=== PATIENT | female | born 1995 | race Hispanic/Latino ===

== ENCOUNTER 2025-06-01 19:20 | Emergency (ER) | payer BC ==
[2025-06-01 20:40] LABS: Absolute Lymphocytes (CBC) 2.2 K/uL (0.7-4.9); Hematocrit 38.2 % (36.0-45.0); Hemoglobin 13.3 g/dL (12.0-15.0); MCH 32.3 pg (27.0-35.0); MCHC 34.8 g/dL (32.0-36.0); MCV 92.9 fL (80-100); MPV 8.4 fL (7.6-11.3); Nucleated RBC Absolute Count 0.0 (0-0); Nucleated Red Blood Cells % 0.2 % (0-0); RBC Red Blood Cell Count 4.11 M/uL (3.86-4.86); White Blood Count 7.00 thou/uL (4.3-10.9)
[2025-06-01 20:58] LABS: Anion Gap 8.5 mEq/L (5.0-15.0); BUN Blood Urea Nitrogen 9.0 mg/dL (7-18); Glucose Level 93.0 mg/dL (74-106); HCG, Quantitative 91.0 mIU/mL (1-3); Potassium 3.5 mEq/L (3.5-5.1)
--- NOTE | 2025-06-01 21:52 | RAD REPORT ---
EXAMINATION: Transvaginal OB COMPARISON: None. HISTORY: BLEEDING TECHNIQUE: Real-time ultrasound was performed through the pelvis. A transvaginal scan was performed t o better visualize the intrauterine contents and adnexa. FINDINGS: There is a heterogenous appearance in the region of the fundal endometrium. There are numerous small cystic areas in the region. A definitive gestational sac is not clearly seen. Right ovary measures 2.7 x 2.0 x 1.5 cm and normal blood flow. Rounded intermediate echo structure in the left adnexa measuring 3.4 x 2.9 cm does not have typical a ppearance of the ovary, may represent a pedunculated fibroid. IMPRESSION: Heterogenous appearance to the fundal endometrium with numerous cystic areas. A definitive IUP is not identified. Findings are indeterminate, cannot exclude molar in the setting of an elevated hCG level. Recommend close interval serial follow-up hCG levels and follow-up pelvic sonogram in 7-10 days.
--- NOTE | 2025-06-01 22:01 | ER ---
Nurse's Notes [facility] Name: Jamilah Seo Age: 30 yrs Sex: Female : 1995 Arrival Date: 06/01/2025 Time: 19:20 Bed 6 Private MD: Diagnosis: Threatened Presentation: 06/01 19:27 Chief complaint: Patient states: had sudden onset of very heavy vaginal bleeding. Had me1 been spotting a little this morning and was expecting her period. LMP: 04/21/25. Coronavirus screen: At this time, the client does not indicate any symptoms associated with coronavirus-19. Ebola Screen: No symptoms or risks identified at this time. Initial Sepsis Screen: Does the patient meet any 2 criteria? HR > 90 bpm. Does the patient have a suspected source of infection? No. Patient's initial sepsis screen is negative. Risk Assessment: Do you want to hurt yourself or someone else? Patient reports no desire to harm self or others. Onset of symptoms was June 01, 2025 at 19:00. 19:27 Method Of Arrival: Ambulatory 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 - Infectious Disease History:: Denies. - Social history:: Smoking status: Patient denies any tobacco usage or history of. Screenin:15 [facility] ED Fall Risk Assessment (Adult) History of falling in the last 3 months, bm8 including since admission No falls in past 3 months (0 pts) Confusion or Disorientation No (0 pts) Intoxicated or Sedated No (0 pts) Impaired Gait No (0 pts) Mobility Assist Device Used No (0 pt) Altered Elimination No (0 pt) Score/Fall Risk Level 0 - 2 = Low Risk Oriented to surroundings, Maintained a safe environment, Educated pt \T\ family on fall prevention, incl call for assistance when getting out of bed, Assessed \T\ reinforced patient's understanding of fall precautions, Hourly rounding (assess needs \T\ fall precautionary measures) done, Used ambulatory aids as needed (educated on \T\ assisted with), Used gait belt as appropriate. Abuse screen: Denies threats or abuse. Nutritional screening: No deficits noted. Tuberculosis screening: No symptoms or risk factors identified. Assessment: 20:15 General: Appears in no apparent distress. comfortable, Behavior is calm, cooperative, bm8 appropriate for age. Pain: Complains of pain in suprapubic area Pain currently is 5 out of 10 on a pain scale. Quality of pain is described as crampy. Neuro: No deficits noted. Cardiovascular: No deficits noted. Respiratory: No deficits noted. GI: No deficits noted. : pt showed a clot from when she was cleaning up, now states that the bleeding has stopped completly Reports vaginal bleeding that is with clots, heavy flow. EENT: No signs and/or symptoms were reported regarding the EENT system. Derm: No signs and/or symptoms reported regarding the dermatologic system. Musculoskeletal: No signs and/or symptoms reported regarding the musculoskeletal system. 21:51 Reassessment: Patient appears in no apparent distress at this time. Patient and/or bm8 family updated on plan of care and expected duration. Pain level reassessed. Patient is alert, oriented x 3, equal unlabored respirations, skin warm/dry/pink. Patient denies pain at this time. Patient states feeling better. Patient states symptoms have improved. 22:13 Reassessment: Patient appears in no apparent distress at this time. Patient and/or bm8 family updated on plan of care and expected duration. Pain level reassessed. Patient is alert, oriented x 3, equal unlabored respirations, skin warm/dry/pink. Patient denies pain at this time. Patient states feeling better. Patient states symptoms have improved. Vital Signs: 19:27 BP 131 / 86; Pulse 95; Resp 18; Temp 98.3; Pulse Ox 100% ; Weight 58.97 kg; Height 4 me1 ft. 11 in. ; Pain 2/10; 20:45 BP 110 / 83; Pulse 70; Resp 17; Temp 98.3; Pulse Ox 100% ; Pain 0/10; bm8 21:51 BP 120 / 84; Pulse 84; Resp 17; Temp 98.3; Pulse Ox 100% ; Pain 0/10; bm8 22:13 BP 114 / 75; Pulse 77; Resp 17; Temp 98.3; Pulse Ox 100% ; Pain 0/10; bm8 19:27 Body Mass Index 26.26 (58.97 kg, 149.86 cm) me1 19:27 Pain Scale: Adult me1 20:45 Pain Scale: Adult bm8 21:51 Pain Scale: Adult bm8 22:13 Pain Scale: Adult bm8 [place] Coma Score: 20:15 Eye Response: spontaneous(4). Motor Response: obeys commands(6). Verbal Response: bm8 oriented(5). Total: 15. 22:13 Eye Response: spontaneous(4). Motor Response: obeys commands(6). Verbal Response: bm8 oriented(5). Total: 15. ED Course: 19:22 Patient arrived in ED. sj2 19:23 Radha Amaral FNP-C is [facility]. kb 19:23 Fortunato Cornejo MD is Attending Physician. kb 19:30 Triage completed. me1 19:30 Arm band placed on Patient placed in an exam room. me1 20:15 Joseph Banks, RN is Primary Nurse. bm8 20:15 Patient has correct armband on for positive identification. Bed in low position. Call bm8 light in reach. Side rails up X 1. Adult w/ patient. Client placed on continuous cardiac and pulse oximetry monitoring. NIBP monitoring applied. Pulse ox on. NIBP on. Door closed. Noise minimized. Warm blanket given. Pillow given. Verbal reassurance given. Head of bed elevated. 20:44 No provider procedures requiring assistance completed. Initial lab(s) drawn, by va, bm8 sent to lab. Inserted saline lock: 22 gauge in right antecubital area, using aseptic technique. Blood collected. Flushed with 10 mL NS. 21:30 Transvaginal OB In Process Unspecified. EDMS 21:47 Abdomen Pelvis Scan\E\US In Process Unspecified. EDMS 22:13 Provided Education on: post er care. bm8 22:13 IV discontinued, intact, bleeding controlled, No redness/swelling at site. Pressure bm8 dressing applied. Administered Medications: No medications were administered Medication: 20:15 VIS not applicable for this client. bm8 Outcome: 22:00 Discharge ordered by . kb 22:13 Discharged to home ambulatory, bm8 22:13 Condition: stable 22:13 Discharge instructions given to patient, family, Instructed on discharge instructions, follow up and referral plans. no drinking with medication, no driving heavy equipment, medication usage, safety practices, Demonstrated understanding of instructions, follow-up care, medications, 22:15 Patient left the ED. bm8 Signatures: Dispatcher [employer] EDRadha Drew, LAUNDRY WASHER-C LAUNDRY WASHER-CkCristel Henderson, RN RN me1 Joseph Banks RN RN bm8 Edmond Mccord 2 Corrections: (The following items were deleted from the chart) 19:30 19:30 PMHx: History of urinary tract infection; me1 me1
--- NOTE | 2025-06-01 22:01 | EDPHYS ---
Physician Documentation [facility] Name: Jamilah Seo Age: 30 yrs Sex: Female : 1995 Arrival Date: 06/01/2025 Time: 19:20 Bed 6 Private MD: ED Physician Fortunato Cornejo HPI: 06/01 20:38 This 30 yrs old Female presents to ER via Ambulatory with complaints of kb Vaginal Bleeding - HEAVY. 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 States she has had spotting today, but then passed a large clot and a lot of blood. States this has never happened before. LMP 04/21/25. Unknown if , but it is possible. . 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 - Infectious Disease History:: Denies. - Social history:: Smoking status: Patient denies any tobacco usage or history of. ROS: 20:37 Constitutional: As per HPI kb Exam: 20:37 Constitutional: This is a well developed, well nourished patient who is awake, alert, kb and in no acute distress. Head/Face: Normocephalic, atraumatic. ENT: Moist Mucous membranes Cardiovascular: Regular rate Respiratory: Respirations even and unlabored. No increased work of breathing. Talking in full sentences Skin: Warm, dry with normal turgor. Normal color. MS/ Extremity: Pulses equal, no cyanosis. Neurovascular intact. Full, normal range of motion. Neuro: Awake and alert, GCS 15, oriented to person, place, time, and situation. 20:37 Abdomen/GI: Inspection: abdomen appears normal, Bowel sounds: normal, Palpation: soft, in all quadrants, mild abdominal tenderness, in the suprapubic area, Vital Signs: 19:27 BP 131 / 86; Pulse 95; Resp 18; Temp 98.3; Pulse Ox 100% ; Weight 58.97 kg; Height 4 me1 ft. 11 in. ; Pain 2/10; 20:45 BP 110 / 83; Pulse 70; Resp 17; Temp 98.3; Pulse Ox 100% ; Pain 0/10; bm8 21:51 BP 120 / 84; Pulse 84; Resp 17; Temp 98.3; Pulse Ox 100% ; Pain 0/10; bm8 22:13 BP 114 / 75; Pulse 77; Resp 17; Temp 98.3; Pulse Ox 100% ; Pain 0/10; bm8 19:27 Body Mass Index 26.26 (58.97 kg, 149.86 cm) me1 19:27 Pain Scale: Adult me1 20:45 Pain Scale: Adult bm8 21:51 Pain Scale: Adult bm8 22:13 Pain Scale: Adult bm8 Khai Coma Score: 20:15 Eye Response: spontaneous(4). Motor Response: obeys commands(6). Verbal Response: bm8 oriented(5). Total: 15. 22:13 Eye Response: spontaneous(4). Motor Response: obeys commands(6). Verbal Response: bm8 oriented(5). Total: 15. MDM: 19:23 Medical Screening Exam initiated kb 20:38 Differential diagnosis: menorrhea, Neoplasm ovarian cyst, uterine fibroids. Data kb reviewed: vital signs, nurses notes. 21:59 Counseling: I had a detailed discussion with the patient and/or guardian regarding the kb historical points, exam findings, and any diagnostic results supporting the discharge/admit diagnosis, lab results, radiology results, the need for outpatient follow up, an OB/Gyne specialist, to return to the emergency department if symptoms worsen or persist or if there are any questions or concerns that arise at home. 06/01 19:28 Order name: Abo/rh Typing; Complete Time: 21:07 kb 06/01 19:28 Order name: Basic Metabolic Panel kb 06/01 19:28 Order name: CBC with Diff kb 06/01 19:28 Order name: Test, Urine kb 06/01 19:28 Order name: Quantitative Hcg kb 06/01 21:07 Order name: Transvaginal OB; Complete Time: 21:52 EDMS 06/01 21:47 Order name: Abdomen Pelvis Scan\E\US EDMS 06/01 19:28 Order name: IV Saline Lock; Complete Time: 20:43 kb 06/01 19:28 Order name: Labs collected and sent; Complete Time: 20:43 kb 06/01 19:28 Order name: NPO; Complete Time: 20:43 kb Administered Medications: No medications were administered Disposition: 23:08 Co-signature as Attending Physician, Fortunato Cornejo MD I reviewed the patient's care rn provided by the Advanced Practice Provider and agree with the diagnosis and treatment plan. Disposition Summary: 06/01/25 22:00 Discharge Ordered Notes: Location: Home kb Condition: Stable kb Diagnosis - Threatened kb Followup: kb - With: Emergency Department - When: As needed - Reason: Worsening of condition Followup: kb - With: Private Physician - When: 2 - 3 days - Reason: Recheck today's complaints, Continuance of care, Re-evaluation by your physician Discharge Instructions: - Discharge Summary Sheet kb - Threatened Miscarriage, [id number] kb - Vaginal Bleeding During , First Trimester, [id number] kb Forms: - Medication Reconciliation Form kb - Antibiotic Education kb - Prescription Opioid Use kb - Patient Portal Instructions kb - Leadership Thank You Letter kb Signatures: Dispatcher [employer] EDRadha Drew, DESIGNER WRITER-C DESIGNER WRITER-Ckb Fortunato Cornejo MD MD rn Eddleman, Michelle, RN RN me1 Corrections: (The following items were deleted from the chart) 19:30 19:30 PMHx: History of urinary tract infection; me1 me1 21:29 21:08 Transvaginal Ob+US.RAD.BRZ ordered. [facility]
[2025-06-02 00:52] VITALS: TEMP 98.3; O2SAT 100
[2025-06-02 00:56] VITALS: BP 114/75
--- NOTE | 2025-06-02 13:31 | RAD REPORT ---
EXAMINATION: Transvaginal OB, Doppler interrogation COMPARISON: None. HISTORY: BLEEDING TECHNIQUE: Real-time ultrasound was performed through the pelvis. A transvaginal scan was performed t o better visualize the intrauterine contents and adnexa. FINDINGS: There is a heterogenous appearance in the region of the fundal endometrium. There are numerous small cystic areas in the region. A definitive gestational sac is not clearly seen. Right ovary measures 2.7 x 2.0 x 1.5 cm and normal blood flow. Rounded intermediate echo structure in the left adnexa measuring 3.4 x 2.9 cm does not have typical a ppearance of the ovary, may represent a pedunculated fibroid. IMPRESSION: Heterogenous appearance to the fundal endometrium with numerous cystic areas. A definitive IUP is not identified. Findings are indeterminate, cannot exclude molar in the setting of an elevated hCG level. Recommend close interval serial follow-up hCG levels and follow-up pelvic sonogram in 7-10 days.
== END 2025-06-01 22:15 | disposition home or self-care (01) ==
LOC: ER 19:20
DX: O20.0 Threatened abortion (principal)
CPT/HCPCS: 36415; 76817; 80048; 81025; 84702; 85025; 86900; 86901; 93975; 99284

== ENCOUNTER 2025-06-05 05:37 | Emergency (ER) | payer BC ==
[2025-06-05] MEDS ORDERED: ONDANSETRON 4 MG/2 ML VIAL ONE (05:57)
[2025-06-05] MEDS ORDERED: NA CHLORIDE 0.9% 1,000 ML ONE (05:58)
[2025-06-05 06:24] LABS: Absolute Lymphocytes (CBC) 2.3 K/uL (0.7-4.9); Hematocrit 35.6 % (36.0-45.0); Hemoglobin 12.2 g/dL (12.0-15.0); MCH 32.0 pg (27.0-35.0); MCHC 34.1 g/dL (32.0-36.0); MCV 93.8 fL (80-100); MPV 8.7 fL (7.6-11.3); Nucleated RBC Absolute Count 0.0 (0-0); Nucleated Red Blood Cells % 0.0 % (0-0); RBC Red Blood Cell Count 3.80 M/uL (3.86-4.86); White Blood Count 6.60 thou/uL (4.3-10.9)
[2025-06-05 06:38] LABS: Anion Gap 8.4 mEq/L (5.0-15.0); BUN Blood Urea Nitrogen 8.0 mg/dL (7-18); Glucose Level 104.0 mg/dL (74-106); HCG, Quantitative 77.0 mIU/mL (1-3); Potassium 3.4 mEq/L (3.5-5.1)
[2025-06-05 06:39] LABS: Sqamous Epithelial <5 /HPF (None Seen); Urine Crystals Unidentified Few /HPF (None Seen); Urine Culture Reflex Order NOT NEEDED; Urine Microscopic Reflex YN ORDER UMIC
--- NOTE | 2025-06-05 06:58 | ER ---
Nurse's Notes [facility] Name: Jamilah Seo Age: 30 yrs Sex: Female : 1995 Arrival Date: 06/05/2025 Time: 05:37 Bed 6 Private MD: Da Liu Diagnosis: Miscarriage in process, incomplete miscarriage Presentation: 06/05 05:54 Chief complaint: Patient states: Was in the other day and was told I was having a vc1 miscarriage. I only bled that day and stopped but I started again last night. It is like there is a terry of blood then it stops. I am also nauseous and feel weak. Coronavirus screen: Client denies travel out of the [place] in the last 14 days. At this time, the client does not indicate any symptoms associated with coronavirus-19. Ebola Screen: Patient negative for fever greater than or equal to 101.5 degrees Fahrenheit, and additional compatible Ebola Virus Disease symptoms Patient denies exposure to infectious person. Patient denies travel to an Ebola-affected area in the 21 days before illness onset. No symptoms or risks identified at this time. Initial Sepsis Screen: Does the patient meet any 2 criteria? No. Patient's initial sepsis screen is negative. Does the patient have a suspected source of infection? No. Patient's initial sepsis screen is negative. Risk Assessment: Do you want to hurt yourself or someone else? Patient reports no desire to harm self or others. Onset of symptoms was June 04, 2025. 05:54 Method Of Arrival: Ambulatory vc1 05:54 Acuity: LYLE 3 vc1 Triage Assessment: 06:01 General: Appears in no apparent distress. Behavior is calm, cooperative, appropriate vc1 for age. Pain: Complains of pain in abdomen. EENT: No deficits noted. No signs and/or symptoms were reported regarding the EENT system. Neuro: Level of Consciousness is awake, alert, obeys commands, Oriented to person, place, time, situation, Appropriate for age. Neuro: Reports weakness. Cardiovascular: Capillary refill < 3 seconds Patient's skin is warm and dry. Respiratory: Airway is patent Respiratory effort is even, unlabored, Respiratory pattern is regular, symmetrical. GI: Reports nausea. : Reports vaginal bleeding that is bright red, with clots, since 06/04/26. Derm: No deficits noted. No signs and/or symptoms reported regarding the dermatologic system. Musculoskeletal: No deficits noted. No signs and/or symptoms reported regarding the musculoskeletal system. 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 Flu vaccine is not up to date. - Infectious Disease History:: Denies. - Social history:: Smoking status: Patient denies any tobacco usage or history of. Screenin:03 [facility] ED Fall Risk Assessment (Adult) History of falling in the last 3 months, vc1 including since admission No falls in past 3 months (0 pts) Confusion or Disorientation No (0 pts) Intoxicated or Sedated No (0 pts) Impaired Gait No (0 pts) Mobility Assist Device Used No (0 pt) Altered Elimination No (0 pt) Score/Fall Risk Level 0 - 2 = Low Risk Oriented to surroundings, Maintained a safe environment, Educated pt \T\ family on fall prevention, incl call for assistance when getting out of bed, Assessed \T\ reinforced patient's understanding of fall precautions, Hourly rounding (assess needs \T\ fall precautionary measures) done. Abuse screen: Denies threats or abuse. Nutritional screening: No deficits noted. Tuberculosis screening: No symptoms or risk factors identified. Assessment: 06:06 General: Appears in no apparent distress. uncomfortable, Behavior is calm, cooperative, cp4 appropriate for age. Pain: Denies pain. Neuro: Level of Consciousness is awake, alert, obeys commands, Oriented to person, place, time, situation. Cardiovascular: Patient's skin is warm and dry. Respiratory: Airway is patent Respiratory effort is even, unlabored. GI: Abdomen is round non-distended, Bowel sounds present X 4 quads. Abd is soft and non tender X 4 quads. Reports cramping, nausea. : Reports vaginal bleeding that is bright red, heavy flow. EENT: No signs and/or symptoms were reported regarding the EENT system. Derm: No signs and/or symptoms reported regarding the dermatologic system. Musculoskeletal: No signs and/or symptoms reported regarding the musculoskeletal system. 07:11 Reassessment: No changes from previously documented assessment. Patient and/or family ll1 updated on plan of care and expected duration. Pain level reassessed. Patient is alert, oriented x 3, equal unlabored respirations, skin warm/dry/pink. Vital Signs: 05:54 BP 107 / 83; Pulse 94; Resp 16; Temp 98.6; Pulse Ox 100% ; Weight 58.97 kg; Height 4 vc1 ft. 11 in. ; 06:37 BP 105 / 76; Pulse 71; Resp 16; Pulse Ox 100% ; cp4 07:11 BP 105 / 73; Pulse 70; Resp 16; Pulse Ox 100% on R/A; ll1 05:54 Body Mass Index 26.26 (58.97 kg, 149.86 cm) vc1 ED Course: 05:42 Patient arrived in ED. gm2 05:42 Da Liu MD is Private Physician. gm2 05:51 Maryjane Whalen MD is Attending Physician. sp3 05:52 Inserted saline lock: 20 gauge in right antecubital area, using aseptic technique. cp4 Blood collected. Flushed with 10 mL NS. 05:55 Gemma Jaime is Primary Nurse. cp4 05:58 Triage completed. vc1 05:59 Arm band placed on right wrist. vc1 06:03 Patient has correct armband on for positive identification. Bed in low position. Call vc1 light in reach. Provided Education on: Plan of care. 06:06 No provider procedures requiring assistance completed. Initial lab(s) drawn, by de, cp4 sent to lab. Urine collected: clean catch specimen, rosa colored. 07:12 IV discontinued, intact, bleeding controlled, No redness/swelling at site. Pressure ll1 dressing applied. Administered Medications: 06:05 Drug: NS 0.9% IV 1000 ml IV at 1000 ml once; to be given as a bolus over 60 minutes cp4 Route: IV; Rate: 1000 ml; Site: right antecubital; 07:12 Follow up: Response: No adverse reaction; IV Status: Completed infusion; IV Intake: ll1 1000ml 06:05 Drug: Ondansetron IVP 4 mg IVP once; over 2 minutes Route: IVP; Site: right antecubital;cp4 07:11 Follow up: Response: No adverse reaction; Nausea is decreased ll1 Medication: 06:04 VIS not applicable for this client. vc1 Intake: 07:12 IV: 1000ml; Total: 1000ml. ll1 Outcome: 06:58 Discharge ordered by . sp3 07:12 Discharged to home ambulatory, 1 07:12 Condition: stable 07:12 Discharge instructions given to patient, Instructed on discharge instructions, follow up and referral plans. Demonstrated understanding of instructions, follow-up care, 07:12 Patient left the ED. ll1 Signatures: Caty Longo RN RN ll1 Maryjane Whalen MD MD sp3 Angelic Rizo RN RN vc1 Gemma Jaime cp4 Jaqueline Bonilla 2
--- NOTE | 2025-06-05 06:58 | EDPHYS ---
Physician Documentation [facility] Name: Jamilah Seo Age: 30 yrs Sex: Female : 1995 Arrival Date: 06/05/2025 Time: 05:37 Bed 6 Private MD: Da Liu ED Physician Maryjane Whalen HPI: 06/05 06:55 This 30 yrs old Female presents to ER via Ambulatory with complaints of sp3 Vaginal Bleeding, Abdominal Cramping, Nausea. 06:55 30-year-old female with no past medical history presents with continued and recurrent sp3 vaginal bleeding. Patient was seen 4 days ago for threatened miscarriage with hemoglobin 13.3 and hCG at 97. Patient has appointment with her tag and label cutter Friday 2 days from now. She states she has had lots of clots coming out and is going through several pads. She denies any upper abdominal pain but does state she has got lower abdominal cramping. No other symptoms including near syncope, syncope, bleeding elsewhere. Remainder of ROS negative.. 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 Flu vaccine is not up to date. - Infectious Disease History:: Denies. - Social history:: Smoking status: Patient denies any tobacco usage or history of. ROS: 06:56 Constitutional: Negative for fever, chills, and weight loss, Eyes: Negative for injury, sp3 pain, redness, and discharge, ENT: Negative for injury, pain, and discharge, Neck: Negative for injury, pain, and swelling, Cardiovascular: Negative for chest pain, palpitations, and edema, Respiratory: Negative for shortness of breath, cough, wheezing, and pleuritic chest pain, Abdomen/GI: Negative for abdominal pain, nausea, vomiting, diarrhea, and constipation, Back: Negative for injury and pain, MS/Extremity: Negative for injury and deformity, Skin: Negative for injury, rash, and discoloration, Neuro: Negative for headache, weakness, numbness, tingling, and seizure, Psych: Negative for depression, anxiety, suicide ideation, homicidal ideation, and hallucinations, 06:56 All other systems are negative, Exam: 06:56 Constitutional: This is a well developed, well nourished patient who is awake, alert, sp3 and in no acute distress. Head/Face: Normocephalic, atraumatic. Neck: Trachea midline, no thyromegaly or masses palpated, and no cervical lymphadenopathy. Supple, full range of motion without nuchal rigidity, or vertebral point tenderness. No Meningismus. Chest/axilla: Normal chest wall appearance and motion. Nontender with no deformity. No lesions are appreciated. Cardiovascular: Regular rate and rhythm with a normal S1 and S2. No gallops, murmurs, or rubs. Normal PMI, no JVD. No pulse deficits. Respiratory: Lungs have equal breath sounds bilaterally, clear to auscultation and percussion. No rales, rhonchi or wheezes noted. No increased work of breathing, no retractions or nasal flaring. Abdomen/GI: Soft, non-tender, with normal bowel sounds. No distension or tympany. No guarding or rebound. No evidence of tenderness throughout. Back: No spinal tenderness. No costovertebral tenderness. Full range of motion. Skin: Warm, dry with normal turgor. Normal color with no rashes, no lesions, and no evidence of cellulitis. MS/ Extremity: Pulses equal, no cyanosis. Neurovascular intact. Full, normal range of motion. Neuro: Awake and alert, GCS 15, oriented to person, place, time, and situation. Cranial nerves II-XII grossly intact. Motor strength 5/5 in all extremities. Sensory grossly intact. Cerebellar exam normal. Normal gait. Vital Signs: 05:54 BP 107 / 83; Pulse 94; Resp 16; Temp 98.6; Pulse Ox 100% ; Weight 58.97 kg; Height 4 vc1 ft. 11 in. ; 06:37 BP 105 / 76; Pulse 71; Resp 16; Pulse Ox 100% ; cp4 07:11 BP 105 / 73; Pulse 70; Resp 16; Pulse Ox 100% on R/A; ll1 05:54 Body Mass Index 26.26 (58.97 kg, 149.86 cm) vc1 MDM: 05:51 Medical Screening Exam initiated sp3 06:56 Data reviewed: vital signs, nurses notes, old medical records, lab test result(s). ED sp3 course: 30-year-old female with continued vaginal bleeding now as a miscarriage in process. Hemoglobin today 12.6 and hCG 77 which is downtrending. I have advised her to call her tag and label cutter tomorrow to try and get same-day appointment. She knows to return here if the bleeding gets worse or she has symptoms of passing out/syncope. Vital signs are normal. Patient will be discharged home with copy of all of her blood work with close monitoring and follow-up.. 06/05 05:53 Order name: CBC with Diff; Complete Time: 06:43 sp3 06/05 05:53 Order name: Basic Metabolic Panel; Complete Time: 06:43 sp3 06/05 05:53 Order name: Quantitative Hcg; Complete Time: 06:43 sp3 06/05 05:57 Order name: UA Rfx Humberto Cult if indicated; Complete Time: 06:43 sp3 06/05 05:53 Order name: IV Saline Lock; Complete Time: 05:55 sp3 06/05 05:53 Order name: Labs collected and sent; Complete Time: 05:55 sp3 Administered Medications: 06:05 Drug: NS 0.9% IV 1000 ml IV at 1000 ml once; to be given as a bolus over 60 minutes cp4 Route: IV; Rate: 1000 ml; Site: right antecubital; 07:12 Follow up: Response: No adverse reaction; IV Status: Completed infusion; IV Intake: ll1 1000ml 06:05 Drug: Ondansetron IVP 4 mg IVP once; over 2 minutes Route: IVP; Site: right antecubital;cp4 07:11 Follow up: Response: No adverse reaction; Nausea is decreased ll1 Disposition Summary: 06/05/25 06:58 Discharge Ordered Notes: Location: Home sp3 Condition: Stable sp3 Diagnosis - Miscarriage in process, incomplete miscarriage sp3 Followup: sp3 - With: Private Physician - When: Upon discharge from the Emergency Department - Reason: Continuance of care Discharge Instructions: - Discharge Summary Sheet sp3 - Incomplete Miscarriage sp3 Forms: - Medication Reconciliation Form sp3 - Antibiotic Education sp3 - Prescription Opioid Use sp3 - Patient Portal Instructions sp3 - Leadership Thank You Letter sp3 Signatures: Dispatcher [employer] EDMS Maryjane Whalen MD MD sp3 Angelic Rizo RN RN vc1 Gemma Jaime cp4 Caty Longo RN ll1 Corrections: (The following items were deleted from the chart) 05:57 05:57 UA Rfx Humberto Cult if indicated+[email or web address] ordered. EDMS EDMS
[2025-06-05 07:30] VITALS: TEMP 98.6; O2SAT 100
[2025-06-05 07:37] VITALS: BP 105/73
== END 2025-06-05 07:12 | disposition home or self-care (01) ==
LOC: ER 05:37
DX: O03.4 Incomplete spontaneous abortion without complication (principal); R11.0 Nausea; R10.9 Unspecified abdominal pain
CPT/HCPCS: 96361; 85025; 81001; 80048; 36415; 84702; 96374; 99284; J2405; J7030